=== PATIENT | male | born 1965 | race Caucasian/White ===

== ENCOUNTER → 2018-04-24 | Outpatient (CLI) | payer BC ==
--- NOTE | 2018-04-26 10:30 | CT ---
EXAMINATION TYPE: CT abdomen w con DATE OF EXAM: 04/24/2018 COMPARISON: None HISTORY: pt states uncontrolled bowel habits X [address] DLP: 1773.2 mGycm Automated exposure control for dose reduction was used. TECHNIQUE: Helical acquisition of images was performed from the lung bases through the top of iliac crest to include entire abdomen. CONTRAST: Performed with Oral Contrast and with IV Contrast, patient injected with 100 mL of Isovue 300. FINDINGS: LUNG BASES: No significant abnormality is appreciated. LIVER/GB: Hepatic parenchyma is diffusely hypoattenuated in comparison to that of the spleen, most commonly see n in hepatic steatosis. This finding limits evaluation for hepatic masses. No gross evidence of hepat ic mass is seen. No intrahepatic biliary ductal dilatation. Gallbladder surgically absent. PANCREAS: No significant abnormality is seen. SPLEEN: No significant abnormality is seen. ADRENALS: No significant abnormality is seen. KIDNEYS: There is a slightly lobular contour of the kidneys. There is a nonobstructing 3 mm left midp ole renal calculus. No hydronephrosis of either kidney. Kidneys enhance symmetrically. BOWEL: The appendix is partially visualized, air-filled and within normal limits. No thickening of t he terminal ileum is seen. Very mild linear submucosal fat deposition in the terminal ileum is seen o n coronal series 45 inferiorly that can relate to chronic inflammatory bowel disease. Postsurgical ch janelle of the gastric sleeve is seen in the upper abdomen. No dilated large or small bowel are noted. F ew loops of decompressed small bowel in the left mid abdomen demonstrate bowel wall thickening that i s likely due to incomplete distention. Scattered nonenlarged mesenteric lymph nodes are noted. LYMPH NODES: There are scattered nonenlarged periaortic and mesenteric lymph nodes seen OSSEOUS STRUCTURES: Moderate multilevel degenerative change of the thoracolumbar spine is present. O sseous structures appear intact. FREE AIR: No free air is visualized. OTHER: Abdominal aorta is of normal course and caliber IMPRESSION: 1. VERY MILD SUBMUCOSAL FAT DEPOSITION IN THE TERMINAL ILEUM CAN BE SEEN IN CHRONIC INFLAMMATORY RONALD L DISEASE HOWEVER NO OTHER FINDINGS TO SUPPORT INFLAMMATORY BOWEL DISEASE ARE SEEN. POSTSURGICAL LEZAMA GES OF THE STOMACH AND SMALL BOWEL ARE NOTED WITHOUT ANASTOMOTIC STRICTURE OR OBSTRUCTION. 2. MILD DEGREE HEPATIC STEATOSIS.
== END ==
LOC: RADCTMAIN 16:02
PROVIDERS: ATTEND Internal Medicine Gastroenterology
DX: K76.0 Fatty (change of) liver, not elsewhere classified (principal); R93.3 Abnormal findings on diagnostic imaging of other parts of digestive tract; Z98.890 Other specified postprocedural states
CPT/HCPCS: 74160; Q9967